=== PATIENT | female | born 1945 | race Caucasian/White ===

== ENCOUNTER → 2024-04-08 13:55 | Outpatient (REF) | payer MEDICARE, SELFPAY | LOC: HWRAD 13:55 | PROVIDERS: ATTENDING PHYSICIAN Physician Assistant | DX: R10.32 Left lower quadrant pain (principal) | CPT/HCPCS: 76700 ==

== ENCOUNTER 2024-04-25 18:11 | Emergency (ER) | payer MEDICARE, SELFPAY ==
[2024-04-25 18:25] VITALS: BP 153/97
[2024-04-25 18:26] LABS: Glucose - Point of Care 96 mg/dl (70-99)
[2024-04-25 18:41] LABS: % Basophils 0.5 % (0-2); % Eosinophils 0.5 % (0-6); % Immature Granulocytes 0.2 % (0-0.5); % Lymphocytes 13.1 % (20.5-51.1); % Monocytes 7.6 % (1.7-9.3); % Neutrophils 78.1 % (42.2-75.2); Absolute Lymphocytes 0.8 10^3/uL (1.2-3.4); Absolute Monocytes 0.4 10^3/uL (0.1-0.6); Absolute Neutrophils 4.6 10^3/uL (1.4-6.5); Hematocrit 38.9 % (37.0-47.0); Hemoglobin 13.4 g/dL (12.0-16.0); Mean Corp Hgb Conc. 34.4 g/dL (33.0-37.0); Mean Corpuscular Hgb 31.7 pg (27.0-31.0); Mean Platelet Volume 8.9 fL (7.4-10.4); Nucleated Red Blood Cells % 0 %; Platelet Count 237 10^3/uL (130-400); Red Blood Cell Count 4.23 10^6/uL (4.20-5.40); White Blood Cell Count 5.8 10^3/uL (4.8-10.8)
[2024-04-25 19:01] LABS: ALT (SGPT) 18 U/L (0-35); AST (SGOT) 37 U/L (14-36); Alkaline Phosphatase 39 U/L (38-126); Blood Urea Nitrogen 16 mg/dl (7-17); Calcium 10.5 mg/dl (8.4-10.2); Carbon Dioxide 27 mmol/L (22-30); Chloride 99 mmol/L (98-107); Glucose 97 mg/dl (70-99); Potassium 4.3 mmol/L (3.5-5.1); Sodium 136 mmol/L (135-145); Total Bilirubin 0.6 mg/dl (0.2-1.3); eGFR > 60.00
[2024-04-25 21:18] VITALS: BP 161/80; BP 163/85; BP 165/76; PULSE 63; PULSE 66; PULSE 68
[2024-04-25 22:00] VITALS: BP 159/76
[2024-04-25 22:01] VITALS: BMI 22.9
[2024-04-25 22:20] VITALS: BP 171/99
[2024-04-25] MEDS: ANTIVERT 25 MG PO (22:33)
--- NOTE | 2024-04-25 22:35 | ED.GENMED ---
History of Present Illness
General
Chief Complaint: Fainting Sensation
Source: patient, spouse, previous hospital records (Previous hospitalization June 2019 for treatment of DKA) and other (External medical summary report)
Exam Limitations: none
Time Seen by Provider: 04/25/24 21:59
Nursing documentation reviewed up to this point in time: agreed with
History of Present Illness
History of Present Illness:
This is a 78-year-old woman who resides at home with her . She has history of insulin-dependent diabetes initially diagnosed 26 years ago. Diabetes has been well-controlled with insulin pump with hemoglobin A1c generally below 7 most
recently, according to 6.8. She also has history of hypertension, hypothyroidism, hyperlipidemia.
She presents with what she states several month history of intermittent lightheadedness that initially begins with a sense of tingling all over that seems to initiate at her head and then traveled down her body that then progresses to nausea and
overall generalized weakness and a sense that she is going to pass out but she has had no episodes of syncope.
She states she was evaluated by her PCP perhaps 6 to 8 months ago but upon review of external medical summary report patient presented to her PCP March 2022 with these complaints and at that time was noted to be mildly hypotensive and had been
maintained on amlodipine as well as ramipril. She was recommended to monitor her blood pressure and stay well-hydrated for several weeks and upon recheck 1 month later, April 2022 she was noted to have continued mild hypotension and she was
recommended to discontinue amlodipine at that time.
She has been feeling well since then but reports return of these episodes for perhaps the past 4 to 6 weeks. Episodes are intermittent more noticeable when she is up and about but occasionally occurs at nighttime while lying in bed. She denies
headache, denies palpitations, no chest pain or abdominal pain, no diaphoresis. She has had no episodes of hypoglycemia during these episodes.
She presents tonight due to concern for 6 recurrent episodes throughout the day today.
Past History
Past History
ED Past Medical History: HTN, Hypercholesterolemia, IDDM and Hypothyroidism
ED Past Surgical History: Appendectomy
Social History
Tobacco: Non-smoker
Alcohol: None
Drug: None
Personal:
Living: with family
Family History
Family History: Other (Noncontributory)
Phy Exam
Physical Exam
Physical Exam:
GENERAL: 78-year-old woman appears her stated age, awake and alert, pleasant, appears in no acute distress. is accompanying.
EYE: pupils equal and reactive. Extraocular muscles intact, minimal lateral gaze nystagmus bilaterally. Anicteric
NECK: Supple, nontender, no meningismus, no significant adenopathy. Negative early
ENT: posterior pharynx is clear, oral mucosa is moist. TM clear b/l, nares patent.
CARDIAC: Regular rate and rhythm. no murmur.
LUNGS: Clear breath sounds bilaterally, no acute respiratory distress, no wheezes/rales/rhonchi
ABDOMEN: Soft, nondistended, without focal tenderness, normoactive BS.
NEUROLOGICAL: Alert and oriented x3, no focal neuro deficits.
SKIN: Warm and dry, normal color, skin intact. No rash.
MUSCULOSKELETAL: No C/C/E. peripheral pulses are full and equal b/l. No palpable tenderness.
PSYCH: Normal and appropriate interaction.
Course
Orders/Labs/Results
Orders:
Orders
04/25/24 18:28
Electrocardiogram (*1) Urgent
Reason for Study: Fatigue / Weakness
EKG- Treatment ONCE
04/25/24 18:32
Complete Blood Count/With Diff Urgent
Comprehensive Metabolic Panel Urgent
TSH Reflex To Free T4 Urgent
Comment: ADD ON
Troponin I Urgent
Comment: ADD ON-SERUM
04/25/24 22:06
Add On- LAB Urgent
Tests Added?: troponin
04/25/24 22:07
Orthostatic VS- Treatment ONCE
04/25/24 22:29
Meclizine [Antivert] 25 mg PO NOW STA
04/25/24 22:34
Add On- LAB Urgent
Tests Added?: TSH w reflex to free T-4
Abnormal Lab Results
04/25/24
18:32
MCH 31.7 H pg
(27.0-31.0)
Absolute Lymphs (auto) 0.8 L 10^3/uL
(1.2-3.4)
Neutrophils % 78.1 H %
(42.2-75.2)
Lymphocytes % 13.1 L %
(20.5-51.1)
Creatinine 0.5 L mg/dL
(0.6-1.0)
Calcium 10.5 H mg/dl
(8.4-10.2)
AST 37 H U/L
(14-36)
04/25/24 18:32
04/25/24 18:32
Vital Signs
Initial and Last Documented VS:
Initial Vital Signs
Temp Pulse Resp BP Pulse Ox
98.7 F 77 16 153/97 98
04/25/24 18:25 04/25/24 18:25 04/25/24 18:25 04/25/24 18:25 04/25/24 18:25
Last Documented Vital Signs
Temp Pulse Resp BP Pulse Ox
98.7 F 66 13 159/76 97
04/25/24 18:25 04/25/24 22:00 04/25/24 22:00 04/25/24 22:00 04/25/24 22:00
MDM/Problems Addressed
Differential Diagnosis Includes:
Concern for cardiac arrhythmia, orthostasis, vertigo. Patient has had no episodes of syncope nor lapse in consciousness, no headache nor focal neurologic deficits/weakness thus nothing to suggest seizure nor central neurologic issue.
Upon review of records, symptoms began over 2 years ago March 2022 and have recurred this march. Concern that hot, humid weather may be playing a role versus seasonal issues such as seasonal allergies aggravating a potential vertiginous episode.
Monitor shows normal sinus rhythm and EKG is unremarkable, unchanged from previous.
Patient noted to be mildly hypertensive with systolic blood pressure in the 150s to 160.
Orthostatic vital signs are negative.
Labs thus far unremarkable. Will check TSH as well as troponin.
Will trial a dose of Antivert for potential vertigo.
Chronic conditions affecting care: DM and HTN
*Pulse Oximetry
Patient hypoxic: no
*EKG
Interpreted by ED Provider?: Yes
Interpretation: normal
Comparison EKG: no changes
Rate: normal
Rhythm: sinus
[place]: normal axis
Interval: normal interval
QRS Pattern: normal QRS
Ischemia: no ischemia
*Supervisor Counseling And Guidance Interpretation
Rate: normal
Interpretation: normal
Rhythm: sinus
*Critical Care Note
Total Time (30-74mins, 75-104mins- exclusive of procedures): Not Applicable
Update Note
Update Note:
04/25/2024 2335 PM
Patient feeling improved, eager to be discharged to home.
Troponin is negative.
TSH is still pending but likely not associated with current symptoms.
Recommend a trial of Antivert for as needed dizziness but recommend at least over the next 2 to 3 days to take this 3 times daily and then every 6 hours as needed.
Recommend she stay well-hydrated on a daily basis.
Prompt follow-up with PCP for recheck.
ED Attending Note
-
Portions of this chart may have been created with voice recognition software.� Occasional wrong word or��sound alike� substitutions may have occurred due to the inherent limitations of voice recognition software.
Discharge Plan
Departure
Patient Disposition: Home (Routine Discharge)
Date of Disposition: 04/25/24
Time of Disposition: 23:36
Patient with high blood pressure during this ER visit?: No
Condition: Good
Discharge Problem:
Intermittent vertigo, Near syncope
Instructions: Vertigo (a type of dizziness), Near Fainting (DC)
Prescriptions:
New
meclizine 25 mg tablet
25 mg PO QID PRN (Reason: dizziness, nausea) Qty: 20 0RF
No Action
amlodipine 5 MG tablet
5 mg PO HS
aspirin 81 MG tablet,delayed release (DR/EC)
81 mg PO DAILY
pyridoxine (vitamin B6) 50 MG tablet
100 mg PO DAILY
pravastatin 20 MG tablet
40 mg PO HS
ramipril 10 MG capsule
10 mg PO DAILY
levothyroxine 112 MCG tablet
112 mcg PO DAILY
Insulin Pump [Patient's Own Insulin Pump:] 1 UNITS Pump.Resvr
0 ea SC ACHS
Patient Comments:
07/01/19: humalog
basal rate
6070-4579 - 0.475 units/hr
1115-7903 - 0.9 units/hr
7730-0614 - 0.775 units/hr
3610-9548 - 0.825 units/hr
ibuprofen 200 MG tablet
200 mg PO Q4HPRN PRN (Reason: mild pain)
carboxymethylcellulose sodium [TheraTears] 1 EACH dropperette
1 drp BOTH EYES QIDPRN PRN (Reason: dry eye)
[id number]-[id number] oil [[place] Essentials Basic] 1,400 MG/5 ML liquid
5 ml PO DAILY
ondansetron [Zofran ODT] 8 MG tablet,disintegrating
8 mg PO TID PRN (Reason: Nausea) Qty: 12 0RF
Referrals:
Nia Bland MD [Family Provider] - Call in 1-3 days for appt
Interventions
Interventions:
*Risk Screen - Suicide Last Done: 04/25/24 21:15
*General Assessment Last Done: 04/25/24 21:15
*Neglect/Abuse Screening Last Done: 04/25/24 21:15
ED- Fall Risk Assessment Last Done: 04/25/24 21:15
*ED COVID-19 Vaccine History Last Done: 04/25/24 18:25
ED- Cardiac Assessment Last Done: 04/25/24 21:15
ED- Neurological Assessment Last Done: 04/25/24 21:15
Discharge Date and Time
Print Language: HAITIAN
[2024-04-25 23:00] LABS: Troponin I < 0.012 ng/ml
[2024-04-25 23:24] VITALS: BP 161/75
[2024-04-25 23:49] LABS: TSH Reflex To Free T4 4.08 uIU/ml (0.47-4.68)
== END 2024-04-26 00:12 | disposition home or self-care (01) ==
LOC: EMR 18:11
PROVIDERS: Student in an Organized Health Care Education/Training Program; EMERGENCY PHYSICIAN Emergency Medicine; FAMILY PHYSICIAN Family Medicine
DX: R42 Dizziness and giddiness (principal); R55 Syncope and collapse; I10 Essential (primary) hypertension; E11.9 Type 2 diabetes mellitus without complications; E03.9 Hypothyroidism, unspecified; E78.00 Pure hypercholesterolemia, unspecified
CPT/HCPCS: 99284; 80053; 82962; 84443; 84484; 85025; 93005

== ENCOUNTER → 2025-09-06 10:58 | Outpatient (REF) | payer MEDICARE, SELFPAY | LOC: PAVMRI 10:58 | PROVIDERS: FAMILY PHYSICIAN Family Medicine | DX: F03.90 Unspecified dementia, unspecified severity, without behavioral disturbance, psychotic disturbance, mood disturbance, and anxiety (principal) | CPT/HCPCS: 70551 ==

== ENCOUNTER 2025-09-23 05:15 | Emergency (ER) | payer MEDICARE, SELFPAY ==
[2025-09-23 05:17] VITALS: BP 163/67
[2025-09-23 05:23] LABS: Glucose - Point of Care 47 mg/dl (70-99)
[2025-09-23 05:43] VITALS: BP 125/52
[2025-09-23 05:53] LABS: Hematocrit 40.8 % (37.0-47.0); Hemoglobin 13.4 g/dL (12.0-16.0); Mean Corp Hgb Conc. 32.8 g/dL (33.0-37.0); Mean Corpuscular Volume 93.4 fL (81.0-99.0); Nucleated Red Blood Cells % 0 %; Platelet Count 231 10^3/uL (130-400); Red Cell Dist. Width 13.2 % (11.5-14.5)
[2025-09-23 06:00] VITALS: BP 134/59
--- NOTE | 2025-09-23 06:05 | ED.GENMED ---
History of Present Illness
<Laurie Valadez MD - Last Filed: 09/24/25 17:02>
General
Chief Complaint: Blood Sugar Problem
Time Seen by Provider: 09/23/25 05:22
<Meghan Bhatia MD, Resident - Last Filed: 09/23/25 06:22>
General
Source: patient and spouse
Exam Limitations: none
History of Present Illness
History of Present Illness:
Patient is a 79-year-old female with past medical history significant for essential hypertension, hyperlipidemia and type 1 diabetes melitis. She has had diabetes for more than 20 years and has been using insulin pump for 20 years. She has had
issues with pump in the past but on rare occasions this is a third event.
Her insulin pump became beeping early in the morning around 2 AM because her blood sugars were running high, woke her up, her blood sugar at that time was 250. They administered a dose of insulin through the insulin pump, heard the
confirmation beep but the glucose levels did not drop but rather rise to 300. She then changed the site and gave another dose through the the insulin pump. It also did not seem to help so she gave herself NovoLog insulin and her thigh/hip. She
does not remember the exact dose
Immediately following that injection, her blood sugars dropped dramatically to 40s and she felt very very sick along with cramping in her legs. She drank 8 ounces of orange juice at home and then decided to drive to the ER for further evaluation.
On arrival to the ER her blood sugar was 59. In the ER, she received another bag of juice helped her to some extent.
She denies otherwise feeling sick and just feels sleepless.
Denies any abdominal pain, nausea, vomiting, headache, chest pain, shortness of breath,or any other issues other than feeling sleepless and exhausted
Past History
<Laurie Valadez MD - Last Filed: 09/24/25 17:02>
Past History
ED Past Medical History: HTN, Hypercholesterolemia, IDDM and Hypothyroidism
ED Past Surgical History: Appendectomy
Social History
Tobacco: Non-smoker
Alcohol: None
Drug: None
Personal:
Living: with family
Family History
Family History: Other (Noncontributory)
Phy Exam
<Meghan Bhatia MD, Resident - Last Filed: 09/23/25 06:22>
General Physical Exam
General Presentation: other (looks tired and exhausted)
Eye Exam
Eye Exam: PERRL and conjunctiva normal
Cardiovascular Exam
Cardiovascular Exam: regular rate/rhythm, no edema, no murmur and normal peripheral pulses
Pulmonary Exam
Pulmonary Exam: lungs clear, no respiratory distress, no rales, no crackles, no rhonchi and no wheezing
Gastrointestinal Exam
Gastrointestinal Exam: normal bowel sounds, non tender and soft
Neurological Exam
Neurological Exam: alert and oriented x3
Musculoskeletal Exam
Musculoskeletal Exam: full ROM and no edema
Course
<Laurie Valadez MD - Last Filed: 09/24/25 17:02>
Orders/Labs/Results
Orders:
Orders
09/23/25 05:35
Complete Blood Count/With Diff Urgent
Comprehensive Metabolic Panel Urgent
09/23/25 06:18
Potassium Chloride [KCl] 40 meq PO NOW STA
09/23/25 06:25
Lorazepam [Ativan] 0.5 mg IV NOW STA
09/23/25 06:34
Dextrose 50%-Water [Dextrose 50% Syringe] 25 grams IV NOW STA
09/23/25 09:31
Ibuprofen [Motrin] 400 mg PO NOW STA
Magnesium Oxide 400 mg PO NOW STA
Potassium Chloride 10% Elixir [KCl Elixir] 40 meq PO NOW STA
Abnormal Lab Results
09/23/25 09/23/25 09/23/25
05:20 05:35 07:31
MCHC 32.8 L g/dL
(33.0-37.0)
Absolute Monos (auto) 0.7 H 10^3/uL
(0.1-0.6)
Monocytes % 12.3 H %
(1.7-9.3)
Potassium 3.1 L mmol/L
(3.5-5.1)
Glucose 58 L mg/dl
(70-99)
AST 43 H U/L
(14-36)
ALT 36 H U/L
(0-35)
Alkaline Phosphatase 32 L U/L
(38-126)
POC Glucose 47 L* mg/dl 103 H mg/dl
(70-99) (70-99)
09/23/25
08:52
MCHC
Absolute Monos (auto)
Monocytes %
Potassium
Glucose
AST
ALT
Alkaline Phosphatase
POC Glucose 154 H mg/dl
(70-99)
09/23/25 05:35
09/23/25 05:35
Vital Signs
Initial and Last Documented VS:
Initial Vital Signs
Temp Pulse Resp BP Pulse Ox
96.9 F L 72 14 163/67 99
09/23/25 05:17 09/23/25 05:17 09/23/25 05:17 09/23/25 05:17 09/23/25 05:17
Last Documented Vital Signs
Temp Pulse Resp BP Pulse Ox
96.9 F L 67 13 133/63 97
09/23/25 05:17 09/23/25 09:45 09/23/25 09:45 09/23/25 09:00 09/23/25 09:45
<Meghan Bhatia MD, Resident - Last Filed: 09/23/25 06:22>
Orders/Labs/Results
Orders:
Orders
09/23/25 05:35
Complete Blood Count/With Diff Urgent
Comprehensive Metabolic Panel Urgent
09/23/25 06:18
Potassium Chloride [KCl] 40 meq PO NOW STA
09/23/25 06:25
Lorazepam [Ativan] 0.5 mg IV NOW STA
09/23/25 06:34
Dextrose 50%-Water [Dextrose 50% Syringe] 25 grams IV NOW STA
09/23/25 09:31
Ibuprofen [Motrin] 400 mg PO NOW STA
Magnesium Oxide 400 mg PO NOW STA
Potassium Chloride 10% Elixir [KCl Elixir] 40 meq PO NOW STA
Abnormal Lab Results
09/23/25 09/23/25 09/23/25
05:20 05:35 07:31
MCHC 32.8 L g/dL
(33.0-37.0)
Absolute Monos (auto) 0.7 H 10^3/uL
(0.1-0.6)
Monocytes % 12.3 H %
(1.7-9.3)
Potassium 3.1 L mmol/L
(3.5-5.1)
Glucose 58 L mg/dl
(70-99)
AST 43 H U/L
(14-36)
ALT 36 H U/L
(0-35)
Alkaline Phosphatase 32 L U/L
(38-126)
POC Glucose 47 L* mg/dl 103 H mg/dl
(70-99) (70-99)
09/23/25
08:52
MCHC
Absolute Monos (auto)
Monocytes %
Potassium
Glucose
AST
ALT
Alkaline Phosphatase
POC Glucose 154 H mg/dl
(70-99)
09/23/25 05:35
09/23/25 05:35
Vital Signs
Initial and Last Documented VS:
Initial Vital Signs
Temp Pulse Resp BP Pulse Ox
96.9 F L 72 14 163/67 99
09/23/25 05:17 09/23/25 05:17 09/23/25 05:17 09/23/25 05:17 09/23/25 05:17
Last Documented Vital Signs
Temp Pulse Resp BP Pulse Ox
96.9 F L 67 13 133/63 97
09/23/25 05:17 09/23/25 09:45 09/23/25 09:45 09/23/25 09:00 09/23/25 09:45
<Meghan Bhatia MD, Resident - Last Filed: 09/23/25 06:22>
MDM/Problems Addressed
Differential Diagnosis Includes:
Hypoglycemia most likely secondary to insulin
Type 1 diabetes mellitus
Leg cramp
MDM/Problems Addressed:
Provided oral sources of glucose including orange juice, crackers and sandwich. Blood glucose in 70-80 now. Still feeling a little bit nauseous, tired and exhausted. Will keep under observation for a couple of hours to make sure that glucose
levels are stable. Check blood work including CBC and CMP
<Laurie Valadez MD - Last Filed: 09/24/25 17:02>
*Pulse Oximetry
SaO2: 98
Oxygen Mode of Delivery: Room air
<Meghan Bhatia MD, Resident - Last Filed: 09/23/25 06:22>
*Pulse Oximetry
Patient hypoxic: no
*Critical Care Note
Total Time (30-74mins, 75-104mins- exclusive of procedures): Not Applicable
<Laurie Valadez MD - Last Filed: 09/24/25 17:02>
Update Note
Update Note:
625Am Pt c/o leg cramps...bs remains stable. K being replaced now, Ca wnl. Will medicate with low dose lorazepam and follow closely. pt drinking oj.
ED Attending Note
<Laurie Valadez MD - Last Filed: 09/24/25 17:02>
ED Attending Note
Patient seen and examined by attending physician: Yes
I performed a history and physical exam of patient and discussed management with resident, I reviewed resident's note and agree with documented findings and plan of care.: Yes
ED Attending Note:
This patient is a 79-year-old female who suffers from insulin-dependent diabetes. She has a pump and monitors her sugars carefully. She had her usual caloric intake yesterday and went to bed feeling her usual self. She was alerted approximately 2
AM that she was hyperglycemic and as per it was noted to be approximately 250. They administered a dose of insulin. Blood sugar then went to almost 300 and they administered another dose of insulin. Given lack of response she then
administered another dose of insulin IM, but does not recall what the dose was. She then developed a rapid decline in her blood sugar associated with nausea, not feeling well, and leg cramps. This prompted her visit here. Here in the ER she
states she now feels fine and her blood sugars noted to be 75. Of note, patient believes that she gave herself NovoLog. She denies chest pain, fever, sweats, shortness of breath, abdominal pain, or other complaints. On exam, abdomen soft and
nontender, patient awake and alert well-appearing. Mucous membranes moist. Update: Pt given more oj, bs now greater than 70. Will continue to observe and monitor for bs stability.
-
Portions of this chart may have been created with voice recognition software.� Occasional wrong word or��sound alike� substitutions may have occurred due to the inherent limitations of voice recognition software.
Discharge Plan
Departure
Patient Disposition: Home (Routine Discharge)
Date of Disposition: 09/23/25
Time of Disposition: 09:32
Patient with high blood pressure during this ER visit?: Yes
Condition: Good
Discharge Problem:
Hypoglycemia, Acute hypokalemia, Cramp in lower leg
Instructions: Hypokalemia, Low blood sugar in people with diabetes, BLOOD PRESSURE
Prescriptions:
No Action
amlodipine 5 MG tablet
5 mg PO HS
aspirin 81 MG tablet,delayed release (DR/EC)
81 mg PO DAILY
pyridoxine (vitamin B6) 50 MG tablet
100 mg PO DAILY
pravastatin 20 MG tablet
40 mg PO HS
ramipril 10 MG capsule
10 mg PO DAILY
levothyroxine 112 MCG tablet
112 mcg PO DAILY
Insulin Pump [Patient's Own Insulin Pump:] 1 UNITS Pump.Resvr
0 ea SC ACHS
Patient Comments:
07/01/19: humalog
basal rate
0463-2429 - 0.475 units/hr
4571-4029 - 0.9 units/hr
4761-6482 - 0.775 units/hr
4834-0224 - 0.825 units/hr
ibuprofen 200 MG tablet
200 mg PO Q4HPRN PRN (Reason: mild pain)
carboxymethylcellulose sodium [TheraTears] 1 EACH dropperette
1 drp BOTH EYES QIDPRN PRN (Reason: dry eye)
ychcq-[id number]-epa-fish oil [[place] Essentials Basic] 1,400 MG/5 ML liquid
5 ml PO DAILY
ondansetron [Zofran ODT] 8 MG tablet,disintegrating
8 mg PO TID PRN (Reason: Nausea) Qty: 12 0RF
meclizine 25 mg tablet
25 mg PO QID PRN (Reason: dizziness, nausea) Qty: 20 0RF
Referrals:
Willy Ruth MD [Family Provider, Family Practice]
Activity Restrictions/Additional Instructions:
PLEASE CONTINUE TO MONITOR YOUR BLOOD SUGAR (GLUCOSE) LEVELS VERY CLOSELY! IF YOU DEVELOP CHEST PAIN, TROUBLE BREATHING, NAUSEA, DIZZINESS, FEVER, PERSISTENT HIGH OR LOW BLOOD SUGAR VALUES, OR OTHER WORRISOME SIGNS, GO TO THE ER IMMEDIATELY!
Drink 6oz of tonic water before bedtime to help with leg cramps.
Interventions
Interventions:
*Risk Screen - Suicide Last Done: 09/23/25 05:17
*General Assessment Last Done: 09/23/25 05:17
*Neglect/Abuse Screening Last Done: 09/23/25 05:17
*ED- Fall Risk Assessment Last Done: 09/23/25 07:36
*ED COVID-19 Vaccine History Last Done: 09/23/25 07:36
*ED Influenza Vaccine History Last Done: 09/23/25 07:36
*Nursing Disposition Last Done: 09/23/25 10:10
ED- Neurological Assessment Last Done: 09/23/25 05:41
Discharge Date and Time
Discharge Date/Time: 09/23/25 10:10
Print Language: [id number]
[2025-09-23 06:08] LABS: ALT (SGPT) 36 U/L (0-35); AST (SGOT) 43 U/L (14-36); Albumin 4.6 g/dl (3.5-5.0); Alkaline Phosphatase 32 U/L (38-126); Blood Urea Nitrogen 14 mg/dl (7-17); Calcium 9.8 mg/dl (8.4-10.2); Carbon Dioxide 28 mmol/L (22-30); Chloride 104 mmol/L (98-107); Glucose 58 mg/dl (70-99); Potassium 3.1 mmol/L (3.5-5.1); Sodium 139 mmol/L (135-145); Total Protein 7.7 g/dl (6.3-8.2); eGFR > 60.00
[2025-09-23] MEDS: ATIVAN 0.5 MG IV (06:28)
[2025-09-23] MEDS: KCL 40 MEQ PO (06:28)
[2025-09-23 07:00] VITALS: BP 139/63
[2025-09-23 07:34] LABS: Glucose - Point of Care 103 mg/dl (70-99)
[2025-09-23 08:00] VITALS: BP 139/63
[2025-09-23 08:53] LABS: Glucose - Point of Care 154 mg/dl (70-99)
[2025-09-23 09:00] VITALS: BP 133/63
[2025-09-23] MEDS: MAGNESIUM OXIDE 400 MG PO (10:08)
[2025-09-23] MEDS: KCL ELIXIR 40 MEQ PO (10:08)
[2025-09-23] MEDS: MOTRIN 400 MG PO (10:08)
== END 2025-09-23 10:10 | disposition home or self-care (01) ==
LOC: EMR 05:15
PROVIDERS: EMERGENCY PHYSICIAN Emergency Medicine; FAMILY PHYSICIAN Family Medicine
DX: E10.649 Type 1 diabetes mellitus with hypoglycemia without coma (principal); E87.6 Hypokalemia; R25.2 Cramp and spasm; E03.9 Hypothyroidism, unspecified; I10 Essential (primary) hypertension; E78.00 Pure hypercholesterolemia, unspecified; Z96.41 Presence of insulin pump (external) (internal); Z79.4 Long term (current) use of insulin; Z90.49 Acquired absence of other specified parts of digestive tract
CPT/HCPCS: 99284; 96374; 80053; 82962; 85025